=== PATIENT | male | born 1975 | race Caucasian/White ===

== ENCOUNTER → 2022-11-05 | Outpatient (REF) | LOC: M PLAIMG 11:51 | PROVIDERS: ATTEND Internal Medicine | DX: R52 Pain, unspecified (principal) ==

== ENCOUNTER → 2023-08-18 | Outpatient (REF) | LOC: M RAD 09:33 | PROVIDERS: ATTEND Internal Medicine | DX: M25.552 Pain in left hip (principal) ==